=== PATIENT | male | born 1970 | race Caucasian/White ===

== ENCOUNTER 2021-04-05 15:18 | Emergency (ER) | payer OTHER ==
[~2021-04-05] VITALS: Ht 167.6 cm; Wt 130.0 kg
[~2021-04-05 15:18] MED LIST: ALBUTEROL SUL0.083 % IN; ASPIRIN LOW DOS81 M2 PO; CIPROFLOXACN500 MG PO; DECADRON2 MG PO; EFFEXOR37.5 MG PO; IPRATROPIU0.5 MG/3 M IN; LEVAQUIN500 MG PO; LEVAQUIN750 MG PO; LEVOTHYROXIN125 MCG PO; LEVOTHYROXIN175 MC1 PO; LOPRESSOR 550 MG/TAB PO; LOSARTAN POTASS50 MG PO; MEDDOSEPAK PO; MOTRIN800 MG PO; PERCOCET 5/325M1 TAB PO; PREDNISONE10 MG PO; RYBELSUS3 MG PO; SYNTHROID175 MCG PO; TAM75CAP PO; VENTOLIN HF1 IN
[2021-04-05 16:15] LABS: HEMOGLOBIN 14.9 g/dl (14.0-18.0); IMMATURE GRANULOCYTES 0.7 % (0.0-5.0); MEAN CELL VOLUME 91.7 fL CALC (80.0-100.0); MEAN CORPUSCULAR HGB CONC 33.9 g/dL CAL (32.0-36.0); NEUT# 4.87 thou/uL (1.82-7.42); RED BLOOD COUNT 4.8 mill/uL (4.70-6.10); RED CELL DISTRI WIDTH 13.1 % (11.5-15.5)
[2021-04-05] MEDS ORDERED: XANAX0.25 MG PO (16:17)
[2021-04-05] MEDS ORDERED: PROZAC10 MG PO (16:17)
[2021-04-05 16:19] LABS: ALBUMIN 4.3 g/dL (3.2-5.0); ALKALINE PHOSPHATASE 54 u/l (38-126); ANION GAP 13 (6-22 (CALC)); BILIRUBIN, TOTAL 0.7 mg/dL (0.0-1.4); BUN 16 mg/dL (9-20); BUN/CREATININE RATIO 16 (12-20 (CALC)); CARBON DIOXIDE 25 mmol/l (22-30); CHLORIDE 105 mmol/l (95-108); GFR > 60 ML/MIN (>=60 (CALC)); GFR FOR AFR.AMER. > 60 ML/MIN (>=60 (CALC)); SGOT/AST 48 u/l (17-59); SODIUM 139 mmol/l (137-146); TOTAL PROTEIN 7.6 g/dL (6.3-8.2)
[2021-04-05 20:15] VITALS: BP 110/62
== END 2021-04-05 20:15 | disposition home or self-care (01) | DRG 313 ==
LOC: ED 15:18
PROVIDERS: Family Medicine
DX: R07.9 Chest pain, unspecified (principal); Z68.42 Body mass index [BMI] 45.0-49.9, adult; I10 Essential (primary) hypertension; E66.9 Obesity, unspecified; E03.9 Hypothyroidism, unspecified

== ENCOUNTER 2022-08-12 15:25 | Emergency (ER) | payer OTHER ==
[2022-08-12] VITALS (18 sets, daily range): BP systolic 94–113; BP diastolic 51–79
[~2022-08-12] VITALS: Ht 167.6 cm; Wt 190.0 kg
[~2022-08-12 15:25] MED LIST changes: +PROZAC10 MG PO; +XANAX0.25 MG PO
[2022-08-12 16:44] LABS: URINE BILIRUBIN - DIPSTICK NEGATIVE (NEGATIVE); URINE BLOOD DIPSTICK NEGATIVE (NEGATIVE); URINE COLOR YELLOW; URINE GLUCOSE - DIPSTICK NEGATIVE (NEGATIVE); URINE KETONE NEGATIVE (NEGATIVE); URINE LEUK ESTERASE NEGATIVE (NEGATIVE); URINE PH 5.5 (4.5-8.0); URINE PROTEIN - DIPSTICK NEGATIVE (NEG-TRACE); URINE SPECIFIC GRAVITY <=1.005; URINE UROBILINOGEN - DIPSTICK 0.2 E.U./dL (0.2)
[2022-08-12 16:45] LABS: URINE NITRITE - DIPSTICK NEGATIVE (Negative)
[2022-08-12 16:45] LABS: EOS% 4.9 % (0-8); HEMATOCRIT 41.2 % (39.0-50.0); HEMOGLOBIN 14.1 g/dl (14.0-18.0); IMMATURE GRANULOCYTES 0.7 % (0.0-5.0); LYMPH% 33.2 % (15-41); MEAN CELL VOLUME 90.9 fL CALC (80.0-100.0); MEAN CORPUSCULAR HGB 31.1 pG CALC (26.0-32.0); MEAN CORPUSCULAR HGB CONC 34.2 g/dL CAL (32.0-36.0); MONO% 6.7 % (2-13); NEUT# 4.93 thou/uL (1.82-7.42); NEUT% 53.5 % (42-76); RED BLOOD COUNT 4.53 mill/uL (4.70-6.10); RED CELL DISTRI WIDTH 12.7 % (11.5-15.5)
[2022-08-12 17:02] LABS: ALBUMIN 4.6 g/dL (3.2-5.0); ALKALINE PHOSPHATASE 40 u/l (38-126); ANION GAP 15 (6-22 (CALC)); BILIRUBIN, TOTAL 0.5 mg/dL (0.2-1.3); BUN 17 mg/dL (9-20); BUN/CREATININE RATIO 15 (12-20 (CALC)); CARBON DIOXIDE 25 mmol/l (22-30); CHLORIDE 107 mmol/l (95-108); CREATININE 1.2 mg/dL (0.7-1.3); GFR FOR AFR.AMER. > 60 ML/MIN (>=60 (CALC)); GFR OTHER RACES > 60 ML/MIN (>=60 (CALC)); POTASSIUM 4.7 mmol/l (3.5-5.1); SGOT/AST 33 u/l (17-59); SODIUM 143 mmol/l (137-146); TOTAL PROTEIN 7.2 g/dL (6.3-8.2)
== END 2022-08-12 22:14 | disposition home or self-care (01) | DRG 395 ==
LOC: ED 15:25
PROVIDERS: Family Medicine
DX: K40.90 Unilateral inguinal hernia, without obstruction or gangrene, not specified as recurrent (principal); I10 Essential (primary) hypertension; E03.9 Hypothyroidism, unspecified
CPT/HCPCS: Q9967

== ENCOUNTER 2023-05-03 11:24 | Emergency (ER) | payer OTHER ==
[~2023-05-03] VITALS: Ht 167.6 cm; Wt 90.0 kg
[2023-05-03] VITALS (7 sets, daily range): BP systolic 96–128; BP diastolic 67–87
[2023-05-03] MEDS ORDERED: LEVOTHYROXIN200 MCG PO (12:04)
[2023-05-03] MEDS ORDERED: ABILIFY5 MG PO (12:07)
[2023-05-03 12:12] LABS: BASO% 0.1 % (0-3); EOS% 2.7 % (0-8); HEMOGLOBIN 15.7 g/dl (14.0-18.0); LYMPH% 22.8 % (15-41); MEAN CELL VOLUME 90.4 fL CALC (80.0-100.0); MEAN CORPUSCULAR HGB 31.5 pG CALC (26.0-32.0); MEAN CORPUSCULAR HGB CONC 34.9 g/dL CAL (32.0-36.0); MONO% 6.3 % (2-13); NEUT# 8.19 thou/uL (1.82-7.42); NEUT% 61.8 % (42-76); RED BLOOD COUNT 4.98 mill/uL (4.70-6.10); RED CELL DISTRI WIDTH 12.6 % (11.5-15.5)
[2023-05-03 12:28] LABS: ALBUMIN 4.1 g/dL (3.2-5.0); ALKALINE PHOSPHATASE 54 u/l (38-126); BILIRUBIN, TOTAL 0.7 mg/dL (0.2-1.3); BUN 21 mg/dL (9-20); BUN/CREATININE RATIO 19 (12-20 (CALC)); CARBON DIOXIDE 24 mmol/l (22-30); CHLORIDE 105 mmol/l (95-108); CREATININE 1.1 mg/dL (0.7-1.3); GFR FOR AFR.AMER. > 60 ML/MIN (>=60 (CALC)); GFR OTHER RACES > 60 ML/MIN (>=60 (CALC)); SGOT/AST 39 u/l (17-59); SODIUM 136 mmol/l (137-146); TOTAL PROTEIN 6.9 g/dL (6.3-8.2)
[2023-05-03 12:29] LABS: IMMATURE GRANULOCYTES 6.3 % (0.0-5.0)
[2023-05-03 12:30] LABS: ANION GAP 11 (6-22 (CALC)); POTASSIUM 3.5 mmol/l (3.5-5.1)
[2023-05-03] MEDS ORDERED: TOPROL XL25 M1 PO (13:07)
[2023-05-03] MEDS ORDERED: SODIUM CHLORIDE 0.9% 1,000 ML IV ONE (13:45)
== END 2023-05-03 14:04 | disposition home or self-care (01) | DRG 179 ==
LOC: ED 11:24
PROVIDERS: Family Medicine
DX: U07.1 COVID-19 (principal); R53.1 Weakness; J32.0 Chronic maxillary sinusitis; E03.9 Hypothyroidism, unspecified; I10 Essential (primary) hypertension; F41.9 Anxiety disorder, unspecified; F32.A Depression, unspecified